=== PATIENT | male | born 1985 | race Caucasian/White ===

== ENCOUNTER 2021-07-12 01:43 | Emergency (ER) | payer OTHER, MEDICAID, SELFPAY ==
[2021-07-12 01:51] VITALS: BP 132/93; PULSE 70; RESP 18; TEMP 36.9; O2SAT 98; BMI 28.5
--- NOTE | 2021-07-12 02:20 | ED.DENTAL ---
HPI - Dental/Oral General Chief complaint: Dental/Oral Stated complaint: dental pain Time Seen by Provider: 07/12/21 02:17 Source: patient Mode of arrival: ambulatory Limitations: no limitations History of Present Illness HPI Narrative: Patient comes to the emergency room, complaining of irritation around the surgical wound. Patient had his stitches removed a few days ago, however [address] in the palate. Patient states it is irritating, no signs of infection, no fever or chills. Patient states that he is unable to sleep due to the irritation, cannot wait until Tuesday to call his oral surgeon. Related Data Allergies Allergy/AdvReac Type Severity Reaction Status Date / Time bee pollen [BEE STINGS] Allergy Severe SWELLING Verified 07/12/21 01:51 ANAPHALIXIS Review of Systems Review of Systems: Constitutional : No Weight loss, No Fever, No Chills, No Night Sweats, No Fatigue, No Malaise ENT/Mouth : No Hearing loss, No Ear Pain, No Nasal Congestion, No Sinus Pain, No Hoarseness, No sore throat, No Rhinorrhea, No Swallowing Difficulty, complaining of irritation in the palate due to a suture Eyes: No Eye Pain, No Swelling, No Redness, No Foreign Body, No Discharge, No Vision Changes Cardiovascular : No Chest Pain, No SOB, No Dyspnea on Exertion, No Orthopnea, No Edema, No Palpitations Respiratory : No Cough, No Sputum, No Wheezing, No Smoke Exposure, No Dyspnea Gastrointestinal : No Nausea, No Vomiting, No Diarrhea, No Constipation, No abdominal Pain, No Hematochezia, No Melena Genitourinary : no irregular bleeding, No Dysuria, No Urinary Frequency, No Hematuria, No Urinary Incontinence, No Urgency, No Flank Pain, No Urinary Flow Changes, No Hesitancy Musculoskeletal : No joint pain, No Myalgias, No Joint Swelling Skin : No Skin Lesions, No rash Neuro : No Weakness, No Numbness, No Paresthesias, No Loss of Consciousness, No Dizziness, No Headache Psych : No Anxiety/Panic, No Depression, No SI/HI/AH/VH, No Social Issues, Heme/Lymph: No Bruising, No Bleeding,No Lymphadenopathy Endocrine : No Polyuria, No Polydipsia, No Temperature Intolerance PMF Past Medical History Medical History No known health problems Social History Social History Advance Directives: No Advance Directives Information Provided: Yes Physical Exam Vital Signs: Vital Signs: Last Vital Signs Temp 98.5 F 07/12/21 01:51 Pulse 70 07/12/21 01:51 Resp 18 07/12/21 01:51 BP 132/93 H 07/12/21 01:51 Pulse Ox 98 07/12/21 01:51 BMI result Body Mass Index 28.5 Const: Other: Appearance: Alert. Oriented X3. No acute distress. Eyes: Pupils equal, round and reactive to light. ENT: Pharynx normal. There is a small translucent suture in the palate, no signs of infection, no pain to palpation Neck: Normal inspection. Neck supple. No lymph nodes noted. No crepitus CVS: Normal heart rate and rhythm. Pulses normal. Normal S1 and S2 Respiratory: No respiratory distress. Breath sounds normal. No Wheezing. No rales Abdomen: Soft and nontender. No rigidity. No distention. good BS x4 Skin: Skin warm and dry. Normal skin color. Normal skin turgor. Extremities: No lower extremity edema. No lower extremity edema. No Lacerations. No Rash Neuro: Oriented X 3. No motor deficit. No sensory deficit. Moving all extermities. No slurred speech. Course Course Course Narrative: One suture was removed Discharge Plan Discharge Clinical Impression: Visit for suture removal Patient Disposition: Home, Self-Care Instructions: Stitches Removal (ED) Additional Instructions: Please follow-up with your primary care physician tomorrow. If you have any worsening or new symptoms, please return to the emergency room or call 911
== END 2021-07-12 02:45 | disposition home or self-care (01) ==
PROVIDERS: Emergency Provider Emergency Medicine
DX: Z48.02 Encounter for removal of sutures (principal)
CPT/HCPCS: 99283

== ENCOUNTER 2024-07-19 13:35 | Outpatient (AMB) | payer OTHER, SELFPAY ==
[2024-07-19 13:39] VITALS: BP 122/78; PULSE 72; TEMP 36.3; O2SAT 98; BMI 29.2
--- NOTE | 2024-07-19 13:39 | AM.OFFWIN_ITS ---
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 - Symptoms initiated with body aches and a self-limited fever about three weeks ago. - Persistent morning congestion has been noted since the resolution of acute febrile symptoms. - Tried Sudafed and Flonase without achi eving symptom relief. - Lightheadedness occurs on occasion rel ated to coughing episodes. - No history of asthma or COPD, and the patient reported no symptoms of shortness of breath or wheezing. - No associated sinus or ear pain, but r eports productive nasty mucus. - Examination confirmed an absence of si nus tenderness upon palpation. - No known allergies. Physical Exam General: Cooperative, healthy appearing, comfortable and no acute distress Orientation/consciousness: Patient oriented x3 Limitations: No limitations Head: Normal to inspection Ears: Hearing grossly normal bilaterally, external ears normal and TM's normal bilaterally Nose: Normal external nose present, Normal nares present and No nasal discharge present Face and sinus: Normal facial exam and Yes sinuses nontender Mouth: Normal oral and palatal mucosa present and moist mucous membranes Throat: Yes tonsils normal, Yes uvula midline. Posterior oropharynx erythema Eyes: Appearance normal, both eyes and all related structures Neck: Normal visual inspection Respiratory: Clear to auscultation bilaterally. Normal respiratory effort, able to speak in complete sentences, no respiratory distress, not tachypneic, no tripod positioning and no use of accessory muscles Cardiovascular: Regular rate and rhythm. Normal S1 and S2 Skin: No rashes or lesions noted Neuro: Patient oriented x3 Extremities: Normal to inspection and Yes no clubbing, cyanosis or edema [facility] Medical History No known health problems Social History Patient Tobacco Use Status: Never used Tobacco Review of Systems Const All systems reviewed & are unremarkable except as noted in HPI and below Physical Exam Vital Signs: Last Vital Signs Temp 97.4 F 07/19/24 13:39 Pulse 72 07/19/24 13:39 BP 122/78 07/19/24 13:39 Pulse Ox 98 07/19/24 13:39 Oxygen Delivery Method Room Air 07/19/24 13:39 BMI result Body Mass Index 29.2 Assessment & Plan Assessment & Plan (1) Atypical pneumonia: Code(s): J18.9 - Pneumonia, unspecified organism Plan: VSS, pt well appearing and PE unremarkable. Management is aimed at addressing atypical pneumonia given the persistent symptoms of cough and congestion unresponsive to previous [id number] treatments. The Z-Dex azithromycin is prescribed, with dosing established to tackle the probable bacterial etiology of the atypical pneumonia. The patient is advised to commence taking an antihistamine to assist in alleviating allergy-related symptoms and enhance symptom control. Examination confirmed no signs of conventional pneumonia, providing assurance to the patient with normal vitals and respiratory examination findings. The medication plan should align with the patient's upcoming travel schedule and assist in achieving symptom resolution before the trip. Patient was informed and verbally consented to the use of an ambient scribe for clinic note documentation during this visit Medications: New azithromycin For 250 mg dose pack: take 500 mg today (day 1), then 250 mg for 4 days (days 2-5) PO 6 tabs 0RF Coding Level of Care Code New Pt Level 3 (88386) Diagnoses Atypical pneumonia J18.9
== END 2024-07-19 14:54 | disposition home or self-care (01) ==
PROVIDERS: Visit Provider Physician Assistant
DX: J18.9 Pneumonia, unspecified organism (principal)